=== PATIENT | female | born 1985 | race Hispanic/Latino ===

== ENCOUNTER 2017-08-08 11:44 | Emergency (ER) | payer MEDICAID | END 2017-08-08 12:19 | disposition home or self-care (01) | LOC: EDH 11:44 | DX: S80.812A Abrasion, left lower leg, initial encounter (principal); Z90.49 Acquired absence of other specified parts of digestive tract; W01.0XXA Fall on same level from slipping, tripping and stumbling without subsequent striking against object, initial encounter; Y93.89 Activity, other specified; Y92.098 Other place in other non-institutional residence as the place of occurrence of the external cause; Y99.8 Other external cause status | CPT/HCPCS: 99281 ==

== ENCOUNTER 2018-02-18 21:00 | Emergency (ER) | payer MEDICAID, OTHER | END 2018-02-18 21:36 | disposition home or self-care (01) | LOC: EDH 21:00 | DX: B86 Scabies (principal); Z90.49 Acquired absence of other specified parts of digestive tract | CPT/HCPCS: 99282 ==

== ENCOUNTER 2018-03-15 22:48 | Emergency (ER) | payer OTHER | END 2018-03-15 23:30 | disposition home or self-care (01) | LOC: EDH 22:48 | DX: H61.21 Impacted cerumen, right ear (principal); Z90.49 Acquired absence of other specified parts of digestive tract | CPT/HCPCS: 99281 ==

== ENCOUNTER 2019-01-21 02:55 | Emergency (ER) | payer MEDICAID | END 2019-01-21 03:50 | disposition home or self-care (01) | LOC: EDH 02:55 | DX: S00.83XA Contusion of other part of head, initial encounter (principal); F43.9 Reaction to severe stress, unspecified; Y04.0XXA Assault by unarmed brawl or fight, initial encounter; Y93.89 Activity, other specified; Y92.098 Other place in other non-institutional residence as the place of occurrence of the external cause; Y99.8 Other external cause status ==

== ENCOUNTER 2019-05-15 00:27 | Emergency (ER) | payer MEDICAID, OTHER ==
[2019-05-15] MEDS ORDERED: ONDANSETRON ODT 4 MG TAB ONE (00:47)
[2019-05-15 00:51] LABS: BILIRUBIN,URINE Negative (NEGATIVE); COLOR,URINE Yellow (YELLOW); GLUCOSE, URINE (UA) Negative (NEGATIVE); KETONES,URINE Trace mg/dL (NEGATIVE); LEUKOCYTE ESTERASE ,URINE Moderate (NEGATIVE); NITRATE,URINE Negative (NEGATIVE); OCCULT BLOOD,URINE Moderate (NEGATIVE); PH,URINE 5.5 (5.0-8.0); PROTEIN,URINE Trace mg/dL (NEGATIVE)
[2019-05-15 00:55] LABS: APPEARANCE,URINE CLOUDY (CLEAR); HCG,QUAL RESULT NEGATIVE (NEGATIVE)
[2019-05-15 01:02] LABS: BACTERIA,URINE Few /HPF (None Seen); MUCUS,URINE Few LPF (None Seen); SQUAMOUS EPITHELIAL CELL,UR Many /HPF (0-2)
[2019-05-15] MEDS ORDERED: CEFTRIAXONE SODIUM 1 GM ONE (01:09)
[2019-05-15] MEDS ORDERED: LIDOCAINE HCL-MPF 1% 2ML VIAL ONE (01:09)
[2019-05-15] MEDS ORDERED: PHENAZOPYRIDINE HCL 200 MG TABLET ONE (01:10)
== END 2019-05-15 01:47 | disposition home or self-care (01) ==
LOC: EDH 00:27
DX: N30.00 Acute cystitis without hematuria (principal)
CPT/HCPCS: 81001; 81025; 87088; 96372; 99284; J0696; J3490

== ENCOUNTER 2019-09-23 16:12 | Emergency (ER) | payer MEDICAID | END 2019-09-23 18:09 | disposition home or self-care (01) | LOC: EDH 16:12 | DX: N39.0 Urinary tract infection, site not specified (principal); J11.1 Influenza due to unidentified influenza virus with other respiratory manifestations ==

== ENCOUNTER 2022-08-15 19:28 | Emergency (ER) | payer MEDICAID | END 2022-08-15 21:12 | disposition left against medical advice (07) | LOC: EDH 19:28 | DX: R10.9 Unspecified abdominal pain (principal); R19.7 Diarrhea, unspecified; R11.0 Nausea; Z53.21 Procedure and treatment not carried out due to patient leaving prior to being seen by health care provider ==

== ENCOUNTER 2022-10-21 21:34 | Emergency (ER) | payer MEDICAID ==
[2022-10-21 23:19] LABS: BASOPHILS % (AUTO) 0.2 % (0.0-5.0); EOSINOPHILS % (AUTO) 0.2 % (0.0-8.0); HEMATOCRIT 41.8 % (36-48); LYMPHOCYTES % (AUTO) 18.4 % (21.0-51.0); MEAN CORPUSCULAR HEMOGLOBIN 29.8 pg (27.0-33.0); MEAN CORPUSCULAR HGB CONC 33.5 g/dL (32.0-36.0); MEAN CORPUSCULAR VOLUME 88.9 fL (79-99); MONOCYTES % (AUTO) 8.3 % (3.0-13.0); NEUTROPHILS % (AUTO) 72.5 % (40.0-77.0); PLATELET COUNT (AUTO) 231 K/uL (130-400); RED CELL DISTRIBUTION WIDTH 12.7 % (11.0-15.5); WHITE BLOOD COUNT (AUTO) 8.1 K/uL (4.8-10.8)
[2022-10-21 23:28] LABS: CREATININE 0.6 mg/dL (0.5-1.5); POTASSIUM 4.8 mmol/L (3.5-5.1)
[2022-10-22] MEDS ORDERED: OMEP40CA21 PO (01:45)
[2022-10-22] MEDS ORDERED: ONDA-104 PO (01:45)
[2022-10-22] MEDS ORDERED: ONDANSETRON 4MG INJ ONE ×2 (04:27→05:21)
[2022-10-22] MEDS ORDERED: MECLIZINE HCL 25 MG TABLET PO ONE (06:00)
[2022-10-22] MEDS ORDERED: ONDANSETRON 4MG INJ IVP ONE (06:00)
[2022-10-22] MEDS ORDERED: 0.9% NACL 500ML IV.SOLN 500 ML IV ONE (06:00)
[2022-10-22 06:33] VITALS: BP 122/70
[2022-10-22 07:17] LABS: AMPHET/METH SCREEN,URINE NEGATIVE (NEGATIVE); BARBITURATE SCREEN, URINE NEGATIVE (NEGATIVE); BENZODIAZEPINES SCREEN,URINE NEGATIVE (NEGATIVE); CANNABINOID SCREEN,URINE NEGATIVE (NEGATIVE); COCAINE SCREEN,URINE NEGATIVE (NEGATIVE); OPIATE SCREEN,URINE NEGATIVE (NEGATIVE); PHENCYCLIDINE SCREEN,URINE NEGATIVE (NEGATIVE)
[2022-10-22 07:22] LABS: BILIRUBIN,URINE NEGATIVE (NEGATIVE); COLOR,URINE LIGHT-YELLOW (YELLOW); GLUCOSE, URINE (UA) NEGATIVE (NEGATIVE); KETONES,URINE 150 mg/dL (NEGATIVE); LEUKOCYTE ESTERASE ,URINE NEGATIVE Leu/uL (NEGATIVE); NITRATE,URINE NEGATIVE (NEGATIVE); OCCULT BLOOD,URINE NEGATIVE (NEGATIVE); PH,URINE 6.5 (5.0-8.0); PROTEIN,URINE NEGATIVE (NEGATIVE); UROBILINOGEN,URINE 0.2 mg/dL (0.2-1.0)
[2022-10-22 07:31] LABS: APPEARANCE,URINE SLIGHTLY CLOUDY (CLEAR)
== END 2022-10-22 06:39 | disposition home or self-care (01) ==
LOC: EDH 21:34
DX: R11.2 Nausea with vomiting, unspecified (principal)
CPT/HCPCS: 99284; 96374; 80053; 80305; 84703; 85025; 81003; 36415; 93005; J2405 ×2